=== PATIENT | female | born 1990 | race Caucasian/White ===

== ENCOUNTER 2018-12-25 11:54 | Inpatient (IN) | payer BC, MEDICAID ==
[2019-03-12] MEDS ORDERED: OXYTOCIN 10 UNIT/ML VIAL ONE ×2 (05:45→19:52)
[2019-03-12] MEDS ORDERED: LIDOCAINE 1% INJ-PF (10 MG/ML) 30 ML SDV ONE ×2 (05:45→19:52)
[2019-03-12] MEDS ORDERED: OXYTOCIN/NORMAL SALINE 20 UNIT/1,000 ML RTUINJ ONE ×2 (05:45→19:52)
[2019-03-12] MEDS ORDERED: MISOPROSTOL 0.2 MG TABLET ONE ×2 (05:45→19:52)
[2019-03-12] MEDS ORDERED: RINGERS SOLUTION,LACTATED 1,000 ML IV PRN ×2 (05:51→16:53)
[2019-03-12 06:04] LABS: APPEARANCE,URINE SLIGHTLY-CLOUDY; BILIRUBIN,URINE NEGATIVE (NEGATIVE); COLOR,URINE YELLOW; GLUCOSE, URINE NEGATIVE (NEGATIVE); KETONES,URINE NEGATIVE (NEGATIVE); LEUKOCYTE ESTERASE,URINE TRACE (NEGATIVE); NITRITE,URINE NEGATIVE (NEGATIVE); PROTEIN,URINE NEGATIVE (NEGATIVE); URINE SPECIFIC GRAVITY 1.014; UROBILINOGEN,URINE NEGATIVE mg/dL (<2.0)
[2019-03-12 06:21] LABS: URINE AMPHETAMINES SCREEN NEGATIVE; URINE BARBITURATES SCREEN NEGATIVE; URINE BENZODIAZEPINES SCREEN NEGATIVE; URINE COCAINE SCREEN NEGATIVE; URINE MARIJUANA (THC) SCREEN NEGATIVE; URINE METHADONE SCREEN NEGATIVE; URINE PHENCYCLIDINE SCREEN NEGATIVE
[2019-03-12] MEDS ORDERED: MISOPROSTOL 0.1 MG TABLET PO ONE (06:38)
[2019-03-12] MEDS ORDERED: MISOPROSTOL 0.1 MG TABLET PV ONE (06:39)
[2019-03-12 06:41] LABS: ABSOLUTE BASOPHILS # (AUTO) 0.1 10^3/uL (0.0-0.2); ABSOLUTE EOSINOPHILS # (AUTO) 0.1 10^3/uL (0.0-0.6); ABSOLUTE LYMPHOCYTES (AUTO) 3.3 10^3/uL (0.5-4.7); ABSOLUTE MONOCYTES (AUTO) 0.7 10^3/uL (0.1-1.4); ABSOLUTE NEUT (AUTO) 8.5 10^3/uL (1.7-8.2); BASOPHILS % (AUTO) 0.9 % (0-2); EOSINOPHILS % (AUTO) 0.7 % (0-6); HEMATOCRIT 33.2 % (36.0-47.0); HEMOGLOBIN 10.7 g/dL (12.0-15.5); MEAN CORPUSCULAR HEMOGLOBIN 25.1 pg (27.0-33.4); MEAN CORPUSCULAR HGB CONC 32.1 g/dL (32.0-36.0); MEAN CORPUSCULAR VOLUME 78 fl (80-97); MONOCYTES % (AUTO) 5.5 % (3-13); PLATELET COUNT 200 10^3/uL (150-450); RED BLOOD COUNT 4.25 10^6/uL (3.72-5.28); RED CELL DISTRIBUTION WIDTH 16.6 % (11.5-14.0); SEGMENTED NEUTROPHILS % (AUTO) 66.9 % (42-78); TOTAL CELLS COUNTED % (AUTO) 100 %; WHITE BLOOD COUNT 12.7 10^3/uL (4.0-10.5)
[2019-03-12] MEDS ORDERED: OXYTOCIN/NORMAL SALINE 20 UNIT/1,000 ML RTUINJ IV PRN (08:30)
--- NOTE | 2019-03-12 08:33 | Admission Physical ---
Datetime Report Generated by CPN: 03/12/2019 08:33 CURRENT ADMISSION Chief Complaint: Scheduled Induction of Labor Indication for Induction: Postterm Admit Impression : Term, Intrauterine ; No Active Labor Admit Plan: Admit to Unit; Initiate Labor Induction Protocol ALLERGIES Medication Allergies: Yes Medication Allergies: dexamethasone/facial numbness (03/12/2019) Latex: No Latex Allergies OBSTETRICAL HISTORY EDC: 03/06/2019 00:00 : 1 Para: 0 Term: 0 : 0 SAB: 0 IAB: 0 Ectopic: 0 Livin Cesareans: 0 VBACs: 0 Multiple Births: 0 Gestational Diabetes: No Rh Sensitization: No Incompetent Cervix: No CHRISTIE: No Infertility: No ART Treatment: No Uterine Anomaly: No IUGR: No Hx Previous C/S: No Macrosomia: No Hx Loss/Stillborn: No PIH: No Hx : No Placenta Previa/Abruption: No Depression/PP Depression: Yes PTL/PROM: No Post Hemorrhage: No Obstetrical History Comments: g1-current SEE RECORDS Alcohol: No Marijuana : No Cocaine: No Other Illicit Drugs: No Cigarettes: Never Smoker. [id number] MEDICAL HISTORY Diabetes: No Blood Transfusion: No Pulmonary Disease (Asthma, TB): No Breast Disease: No Hypertension: No Machine Presser Surgery: No Heart Disease: No Hosp/Surgery: No Autoimmune Disorder: No Anesthetic Complications: No Kidney Disease: No Abnormal Pap Smear: No Neuro/Epilepsy: No Psychiatric Disorders: No Other Medical Diseases: Yes Hepatitis/Liver Disease: No Significant Family History: No Varicosities/Phlebitis: No Trauma/Violence : No Thyroid Dysfunction: No Medical History Comments: obesity, PCOS, depression INFECTIOUS HISTORY Gonorrhea: No Genital Herpes: No Chlamydia: No Tuberculosis: No Syphilis: No Hepatitis: No HIV/AIDS Exposure: No Rash or Viral Illness: No HPV: No PHYSICAL EXAM General: Normal HEENT: Normal Neurologic: Normal Thyroid: Deferred Heart: Normal Lungs: Normal Breast: Deferred Back: Normal Abdomen: Normal Genitourinary Exam: Normal Extremities: Normal DTRs: Normal Pelvic Type: Adequate Vital Signs: Reviewed VAGINAL EXAM Dilatation: 1 Effacement: 50 Station: -3 MEMBRANES Membranes: Intact FETUS A EGA: 40.6 Monitoring: External US FHR- Baseline: 130 Variability: Moderate 6-25bpm Accelerations: 15X15 Decelerations: None FHR Category: Category I Presentation: Vertex Admit Comment: 28yo at 40+6ega presents for IOL due to postterm . No e/o GDM. mildly elevated BP - no e/o preE. GBS negative. EFW 9#6oz. cvx was initially billed as 2cm then amadeo yesterday was 1cm. Plan cooks/silveira bulb and pitocin for IOL. Anticipate . PLANS FOR LABOR AND DELIVERY Labor and Delivery: None (Annotations: Data stored by [facility] on behalf of user) Pain Management: Epidural Feeding Preference: Breast Benefit of Breast Feed Discussed: Yes Circumcision: Yes INFORMED CONSENT Informed Consent Obtained: Vaginal Delivery; Induction of Labor; Risks, Benefits and Alternatives Discussed Signature: with User ID: [email or web address]
[2019-03-12] MEDS ORDERED: PHENYLEPHRINE HCL INJ/PF 10 MG/1 ML SDV ONE (13:08)
[2019-03-12] MEDS ORDERED: BUPIVACAINE HCL 0.25 % INJ/PF (2.5 MG/1 ML) 30 ML VIAL ONE (13:09)
[2019-03-12] MEDS ORDERED: FENTANYL/BUPIVACAINE/NS/PF 300 MCG/150 ML RTUINJ EPI ONE (13:09)
[2019-03-12] MEDS ORDERED: EPHEDRINE SULFATE INJ 50 MG/1 ML AMPULE ONE (13:09)
[2019-03-12] MEDS ORDERED: FENTANYL CITRATE INJ/PF 100 MCG/2 ML AMPUL ONE ×2 (13:09→14:35)
[2019-03-12] MEDS ORDERED: LIDOCAINE 2%/EPINEPHRINE INJ 20 ML VIAL ONE (14:34)
[2019-03-12] MEDS ORDERED: SODIUM BICARBONATE 8.4% INJ 50 MEQ/50 ML DISP.SYRIN ONE (14:35)
[2019-03-12] MEDS ORDERED: FENTANYL/BUPIVACAINE/NS/PF 200 MCG/100 ML RTUINJ EPI PRN (16:53)
[2019-03-12] MEDS ORDERED: BENZOIN/ALOE VERA/STORAX/TOLU TINCTURE 60 ML TP PRN (16:53)
[2019-03-12] MEDS ORDERED: BUPIVACAINE HCL 0.25 % INJ/PF (2.5 MG/1 ML) 30 ML VIAL INFIL ONE (16:53)
[2019-03-12] MEDS ORDERED: EPHEDRINE SULFATE INJ 50 MG/1 ML AMPULE IV PRN (16:53)
[2019-03-13] MEDS ORDERED: ACETAMINOPHEN 325 MG TABLET ONE (01:06)
[2019-03-13] MEDS ORDERED: AMPICILLIN SOD/SULBACTAM 3 GM VIAL ONE (01:07)
[2019-03-13] MEDS ORDERED: MEASLES,MUMPS&RUBELLA VACC/PF 0.5 ML VIAL SUBCUT PRN (01:19)
[2019-03-13] MEDS ORDERED: BENZOCAINE/MENTHOL AEROSOL SPRAY 56 ML TOP PRN (01:19)
[2019-03-13] MEDS ORDERED: ACETAMINOPHEN 650 MG SUPP.RECT PR PRN (01:19)
[2019-03-13] MEDS ORDERED: ACETAMINOPHEN WITH CODEINE #3 TABLET PO PRN ×2 (01:19)
[2019-03-13] MEDS ORDERED: OXYTOCIN/NORMAL SALINE 20 UNIT/1,000 ML RTUINJ IV PRN (01:19)
[2019-03-13] MEDS ORDERED: PSEUDOEPHEDRINE HCL 30 MG TABLET PO PRN (01:19)
[2019-03-13] MEDS ORDERED: DIBUCAINE 1% OINTMENT 56 GM TP PRN (01:19)
[2019-03-13] MEDS ORDERED: ZOLPIDEM TARTRATE 5 MG TABLET PO PRN (01:19)
[2019-03-13] MEDS ORDERED: DIPH/PERTUSS(ACELL)/TETANUS VAC/PF 0.5 ML SYR (>=10YO) IM PRN (01:19)
[2019-03-13] MEDS ORDERED: MAGNESIUM HYDROXIDE SUSP 30 ML UDCUP PO PRN (01:19)
[2019-03-13] MEDS ORDERED: PROMETHAZINE HCL 25 MG TABLET PO PRN (01:19)
[2019-03-13] MEDS ORDERED: GLYCERIN/WITCH HAZEL LEAF 1 EACH MED..WIPE TP PRN (01:19)
[2019-03-13] MEDS ORDERED: PROMETHAZINE HCL 25 MG SUPP.RECT PR PRN (01:19)
[2019-03-13] MEDS ORDERED: DIPHENHYDRAMINE HCL 25 MG CAPSULE PO PRN (01:19)
[2019-03-13] MEDS ORDERED: PROMETHAZINE HCL INJ 25 MG/1 ML VIAL IV PRN (01:19)
[2019-03-13] MEDS ORDERED: NA PHOS,M-B/NA PHOS,DI-BA (ADULT) 133 ML ENEMA PR PRN (01:19)
[2019-03-13] MEDS ORDERED: AMPICILLIN SOD/SULBACTAM 3 GM VIAL IV SCH (01:30)
--- NOTE | 2019-03-13 03:03 | Delivery Summary ---
Del Sum A-C Datetime Report Generated by CPN: 03/13/2019 03:03 DELIVERY PERSONNEL DELIVERY PERSONNEL: [id number] Delivery Doctor:: Gunjan Rivera MD Labor and Delivery Nurse:: Yolanda Gage RNinteractive art director Nurse:: Becky Lakhanico, RN MATERNAL INFORMATION Delivery Anesthesia: Epidural Medications After Delivery: Pitocin Bolus-Please Comment Meds After Delivery Comment: Pitocin 20 units/1000 ml NS bolus after placenta Estimated Blood Loss (ml): 250 Delivery QBL: 100 Maternal Complications: None LABOR SUMMARY EDC: 03/06/2019 00:00 No. Babies in Womb: 1 Attempted: No Labor Anesthesia: Epidural LABOR INFORMATION Reason for Induction: Post Dates Onset of Labor: 03/12/2019 09:38 Complete Dilatation: 03/13/2019 23:24 Cervical Ripening Agents: Franz Balloon Oxytocin: Induction Group B Beta Strep: negative Antibiotics # of Doses: 0 Antibiotics Time of Last Dose: n/a Name of Antibiotic Given: n/a Steroids Given: None Reason Steroids Not Administered: Not Applicable MEMBRANES Membranes Rupture Method: Spontaneous Rupture of Membranes: 03/12/2019 17:11 Length of Rupture (hr): 7.65 Amniotic Fluid Color: Clear Amniotic Fluid Amount: Moderate Amniotic Fluid Odor: Normal STAGES OF LABOR Stage 1 hr: 37 Stage 1 min: 46 Stage 2 hr: -22 Stage 2 min: -34 Stage 3 hr: 0 Stage 3 min: 3 Total Time in Labor hr: 15 Total Time in Labor min: 15 VAGINAL DELIVERY Episiotomy: None Laceration #1: Vaginal Laceration Extension #1: First Degree Laceration Repair: Yes Laceration Repair Note: 2-0 Chromic interrupted x 2 figure of 8 CSECTION DELIVERY Primary Indication: N/A Secondary Indication: N/A CSection Incidence: N/A Labor: N/A Elective: N/A CSection Incision: N/A BABY A INFORMATION Infant Delivery Date/Time: 03/13/2019 00:50 Method of Delivery: Vaginal Born in Route : No : N/A Forceps: N/A Vacuum Extraction: N/A Shoulder Dystocia : No PRESENTATION/POSITION BABY A Presentation: Cephalic Cephalic Presentation: Vertex Vertex Position: Occipital Anterior Breech Presentation: N/A PLACENTA INFORMATION BABY A Placenta Delivery Time : 03/13/2019 00:53 Placenta Method of Delivery: Spontaneous Placenta Status: Delivered SCORES BABY A Heart Rate 1 min: >100 bpm Resp Effort 1 min: Absent Reflex Irritability 1 min: No Response Muscle Tone 1 min: Flaccid Color 1 min: Blue/Pale Resuscitation Effort 1 min: Tactile Stimulation; Oxygen SCORE 1 MIN: 2 Heart Rate 5 min: >100 bpm Resp Effort 5 min: Good Cry Reflex Irritability 5 min: Cough or Sneeze or Pulls Away Muscle Tone 5 min: Some Flexion of Extremities Color 5 min: Body [place], Extremities Blue SCORE 5 MIN: 8 INFORMATION BABY A Gestational Age at Delivery: 40.6 Gestational Status: Full Term- 39- 40.6 Weeks Outcome : Liveborn Condition : Stable Sex: Male IDENTIFICATION BABY A Verification Date/Time: 03/13/2019 00:58 ID Band Number: [id number] Mother's Name Verified: Yes Infant RN Verifying : Mary Kay Mendez, RN Additional Verifying Personnel: NAsha Gage, NEHA WEIGHT/LENGTH BABY A Birthweight (gm): 3742 Infant Weight (lb): 8 Weight (oz): 4 Length (in): 21.50 Infant Length (cm): 54.61 CORD INFORMATION BABY A No. Cord Vessels: 3 Nuchal Cord : N/A Cord Blood Taken: Yes-For Storage (Mom's Blood type +) Suction: Mouth; Nose ASSESSMENT BABY A Infant Complications- Other: terminal mec Physical Findings at Delivery: Molding of the Head Physical Findings- Other: see inital nursery assessment Accounting Recruiter/ALS Called : No Care By: Mary Kay Mendez RN/Janusz Kilpatrick RN Transferred To: Remains with Mother SIGNATURES Signature: with User ID: [email or web address]
--- NOTE | 2019-03-13 03:41 | Delivery Summary ---
Del Sum A-C Datetime Report Generated by CPN: 03/13/2019 03:40 DELIVERY PERSONNEL DELIVERY PERSONNEL: [id number] Delivery Doctor:: Gunjan Rivera MD Labor and Delivery Nurse:: Yolanda Gage RNnewspaper reporter Nurse:: Becky Lakhanico, RN MATERNAL INFORMATION Delivery Anesthesia: Epidural Medications After Delivery: Pitocin Bolus-Please Comment Meds After Delivery Comment: Pitocin 20 units/1000 ml NS bolus after placenta Estimated Blood Loss (ml): 250 Delivery QBL: 100 Maternal Complications: None LABOR SUMMARY EDC: 03/06/2019 00:00 No. Babies in Womb: 1 Attempted: No Labor Anesthesia: Epidural LABOR INFORMATION Reason for Induction: Post Dates Onset of Labor: 03/12/2019 09:38 Complete Dilatation: 03/12/2019 23:24 Cervical Ripening Agents: Franz Balloon Oxytocin: Induction Group B Beta Strep: negative Antibiotics # of Doses: 0 Antibiotics Time of Last Dose: n/a Name of Antibiotic Given: n/a Steroids Given: None Reason Steroids Not Administered: Not Applicable MEMBRANES Membranes Rupture Method: Spontaneous Rupture of Membranes: 03/12/2019 17:11 Length of Rupture (hr): 7.65 Amniotic Fluid Color: Clear Amniotic Fluid Amount: Moderate Amniotic Fluid Odor: Normal STAGES OF LABOR Stage 1 hr: 13 Stage 1 min: 46 Stage 2 hr: 1 Stage 2 min: 26 Stage 3 hr: 0 Stage 3 min: 3 Total Time in Labor hr: 15 Total Time in Labor min: 15 VAGINAL DELIVERY Episiotomy: None Laceration #1: Vaginal Laceration Extension #1: First Degree Laceration Repair: Yes Laceration Repair Note: 2-0 Chromic interrupted x 2 figure of 8 CSECTION DELIVERY Primary Indication: N/A Secondary Indication: N/A CSection Incidence: N/A Labor: N/A Elective: N/A CSection Incision: N/A BABY A INFORMATION Infant Delivery Date/Time: 03/13/2019 00:50 Method of Delivery: Vaginal Born in Route : No : N/A Forceps: N/A Vacuum Extraction: N/A Shoulder Dystocia : No PRESENTATION/POSITION BABY A Presentation: Cephalic Cephalic Presentation: Vertex Vertex Position: Occipital Anterior Breech Presentation: N/A PLACENTA INFORMATION BABY A Placenta Delivery Time : 03/13/2019 00:53 Placenta Method of Delivery: Spontaneous Placenta Status: Delivered SCORES BABY A Heart Rate 1 min: >100 bpm Resp Effort 1 min: Absent Reflex Irritability 1 min: No Response Muscle Tone 1 min: Flaccid Color 1 min: Blue/Pale Resuscitation Effort 1 min: Tactile Stimulation; Oxygen SCORE 1 MIN: 2 Heart Rate 5 min: >100 bpm Resp Effort 5 min: Good Cry Reflex Irritability 5 min: Cough or Sneeze or Pulls Away Muscle Tone 5 min: Some Flexion of Extremities Color 5 min: Body [employer], Extremities Blue SCORE 5 MIN: 8 INFORMATION BABY A Gestational Age at Delivery: 40.6 Gestational Status: Full Term- 39- 40.6 Weeks Outcome : Liveborn Condition : Stable Sex: Male IDENTIFICATION BABY A Infant Verification Date/Time: 03/13/2019 00:58 ID Band Number: [id number] Mother's Name Verified: Yes RN Verifying Infant: Mary Kay Mendez, RN Additional Verifying Personnel: NAsha Gage, RN WEIGHT/LENGTH BABY A Infant Birthweight (gm): 3742 Weight (lb): 8 Weight (oz): 4 Length (in): 21.50 Infant Length (cm): 54.61 CORD INFORMATION BABY A No. Cord Vessels: 3 Nuchal Cord : N/A Cord Blood Taken: Yes-For Storage (Mom's Blood type +) Infant Suction: Mouth; Nose ASSESSMENT BABY A Complications- Other: terminal mec Physical Findings at Delivery: Molding of the Head Physical Findings- Other: see inital nursery assessment Traveling Accountant/ALS Called : No Care By: Mary Kay Mendez RN/Janusz Kilpatrick RN Transferred To: [facility] with Mother SIGNATURES Signature: with User ID: [email or web address]
[2019-03-13] MEDS: IBUPROFEN 800 MG TABLET PO SCH ×3 (05:21→23:05)
--- NOTE | 2019-03-13 10:11 | PDOC PROGRESS REPORT ---
Subjective-OB Progress Note for:: 03/13/19 Subjective: Doing well, ringing in ears from ear infection, did not get gtts Rx by Urgent care Physical Exam (OB) Vital Signs: Temp Pulse Resp BP Pulse Ox 97.6 F 77 16 137/70 H 99 03/13/19 08:08 03/13/19 08:08 03/13/19 08:08 03/13/19 08:08 03/13/19 03:35 Intake & Output 03/12/19 03/13/19 03/14/19 06:59 06:59 06:59 Intake Total 600 240 Balance 600 240 Weight 134.7 kg - PIH/Pre-Eclampsia Clonus: Negative Headache: Absent Epigastric Pain: No Visual Changes: No - Lochia Lochia Amount: Small 10-25 ml Lochia Color: Rubra/Red - Abdomen Description: Soft, Round Hernia Present: No Fundal Description: Firm, Midline Fundal Height: u/u - u/2 Objective-Diagnostic Laboratory: 03/12/19 06:09 Assessment and Plan(PN) - Assessment and Plan (1) Vaginal delivery Is this a current diagnosis for this admission?: Yes - Time Spent with Patient Time with patient: Less than 15 minutes Medications reviewed and adjusted accordingly: Yes - Disposition Anticipated Discharge: Home Within: within 24 hours
[2019-03-13] MEDS: FERROUS SULFATE 325 MG TABLET PO SCH ×2 (11:16→17:34)
[2019-03-13] MEDS: PRENATAL VITAMIN W DHA CAPSULE PO SCH (11:16)
[2019-03-13] MEDS: DOCUSATE SODIUM 100 MG CAPSULE PO SCH ×2 (11:16→17:34)
[2019-03-13] MEDS: SENNOSIDES/DOCUSATE 8.6-50 MG 1 EACH TABLET PO SCH (11:16)
[2019-03-13] MEDS: FAMOTIDINE 20 MG TABLET PO SCH ×2 (11:17→23:05)
[2019-03-13] MEDS: AMPICILLIN SODIUM/SULBACTAM NA 3 GM in NORMAL SALINE 100 ML IV SCH ×2 (11:17→17:34)
[2019-03-13] MEDS: CETIRIZINE 10 MG TABLET PO SCH (11:23)
[2019-03-14] MEDS: IBUPROFEN 800 MG TABLET PO SCH ×3 (05:27→21:15)
[2019-03-14 06:57] LABS: MEAN CORPUSCULAR HEMOGLOBIN 25.1 pg (27.0-33.4); MEAN CORPUSCULAR VOLUME 78 fl (80-97); PLATELET COUNT 227 10^3/uL (150-450); RED BLOOD COUNT 3.44 10^6/uL (3.72-5.28); RED CELL DISTRIBUTION WIDTH 17.1 % (11.5-14.0)
[2019-03-14 07:10] LABS: HEMOGLOBIN 8.6 g/dL (12.0-15.5)
--- NOTE | 2019-03-14 09:17 | PDOC PROGRESS REPORT ---
Subjective-OB Progress Note for:: 03/14/19 Subjective: Doing well, no c/o Physical Exam (OB) Vital Signs: Temp Pulse Resp BP Pulse Ox 97.8 F 87 12 133/70 H 97 03/14/19 07:19 03/14/19 07:19 03/14/19 07:19 03/14/19 07:19 03/14/19 07:19 Intake & Output 03/13/19 03/14/19 03/15/19 06:59 06:59 06:59 Intake Total 600 340 Balance 600 340 - PIH/Pre-Eclampsia Clonus: Negative Headache: Absent Epigastric Pain: No Visual Changes: No - Lochia Lochia Amount: Small 10-25 ml Lochia Color: Rubra/Red - Abdomen Description: Soft, Round Hernia Present: No Fundal Description: Firm, Midline Fundal Height: u/u - u/2 Objective-Diagnostic Laboratory: 03/14/19 06:39 03/14/19 06:39 WBC 13.0 H RBC 3.44 L Hgb 8.6 L D Hct 27.0 L MCV 78 L MCH 25.1 L MCHC 32.0 RDW 17.1 H Plt Count 227 Assessment and Plan(PN) - Assessment and Plan (1) Vaginal delivery Is this a current diagnosis for this admission?: Yes - Time Spent with Patient Time with patient: Less than 15 minutes Medications reviewed and adjusted accordingly: Yes - Disposition Anticipated Discharge: Home Within: within 24 hours
--- NOTE | 2019-03-14 09:43 | PDOC DISCHARGE SUMMARY ---
Final Diagnosis Discharge Date: 03/14/19 - Final Diagnosis (1) Vaginal delivery Is this a current diagnosis for this admission?: Yes Discharge Data - Discharge Medication Home Medications: Vitamin [-U Multiple Vitamin Capsule] 1 tab PO DAILY 03/12/19 Ferrous Sulfate [Feosol 325 mg Tablet] 325 mg PO BID tablet 03/14/19 Gestational Age: 40.6 Reason(s) for Admission: Induction of Labor Procedures: NST, Ultrasound Intrapartum Procedure(s): Spontaneous Vaginal Delivery Complication(s): Laceration-Vaginal Laceration-Degree: 1st - [place] Data Baby 1 Male Home with Mother: Yes Complications: No - Diagnosis Test Laboratory: Temp Pulse Resp BP Pulse Ox 97.8 F 87 12 133/70 H 97 03/14/19 07:19 03/14/19 07:19 03/14/19 07:19 03/14/19 07:19 03/14/19 07:19 03/12/19 03/12/19 03/14/19 05:23 06:09 06:39 RBC 4.25 3.44 L Hgb 10.7 L 8.6 L D Hct 33.2 L 27.0 L Urine Opiates Screen NEGATIVE - Discharge information/Instructions Discharge Activity: Activity As Tolerated, No Lifting Over 10 Pounds, No Lifting/Push/Pulling, Pelvic Rest Discharge Diet: As Tolerated, Regular Disposition: HOME, SELF-CARE Follow up with: [facility] in: 4, Weeks
[2019-03-14] MEDS ORDERED: CETIRIZINE 10 MG TABLET PO SCH (10:00)
[2019-03-14] MEDS: CETIRIZINE 10 MG TABLET PO SCH (10:04)
[2019-03-14] MEDS: DOCUSATE SODIUM 100 MG CAPSULE PO SCH ×2 (10:04→18:28)
[2019-03-14] MEDS: PRENATAL VITAMIN W DHA CAPSULE PO SCH (10:05)
[2019-03-14] MEDS: FERROUS SULFATE 325 MG TABLET PO SCH ×2 (10:05→18:28)
[2019-03-14] MEDS: SENNOSIDES/DOCUSATE 8.6-50 MG 1 EACH TABLET PO SCH (10:05)
[2019-03-14] MEDS: FAMOTIDINE 20 MG TABLET PO SCH ×2 (10:05→21:15)
[2019-03-15] MEDS: IBUPROFEN 800 MG TABLET PO SCH (05:31)
[2019-03-15] MEDS: FAMOTIDINE 20 MG TABLET PO SCH (10:28)
[2019-03-15] MEDS: CETIRIZINE 10 MG TABLET PO SCH (10:28)
[2019-03-15] MEDS: PRENATAL VITAMIN W DHA CAPSULE PO SCH (10:28)
[2019-03-15] MEDS: SENNOSIDES/DOCUSATE 8.6-50 MG 1 EACH TABLET PO SCH (10:28)
[2019-03-15] MEDS: FERROUS SULFATE 325 MG TABLET PO SCH (10:28)
[2019-03-15] MEDS: DOCUSATE SODIUM 100 MG CAPSULE PO SCH (10:28)
[2019-03-15 12:26] VITALS: BP 136/75
== END 2019-03-15 14:08 | disposition home or self-care (01) | DRG 807 ==
LOC: UNDOADMIN 11:54 → EH 11:54 → LR 03-12 05:02 → 2S 03-13 03:15
PROVIDERS: ADMIT Student in an Organized Health Care Education/Training Program; ATTEND Obstetrics & Gynecology
PROC: 10E0XZZ Delivery of Products of Conception, External Approach (ICD-10-PCS; principal; 2019-03-13)
PROC: 0HQ9XZZ Repair Perineum Skin, External Approach (ICD-10-PCS; 2019-03-13)
DX: O48.0 Post-term pregnancy (principal); Z37.0 Single live birth; O70.0 First degree perineal laceration during delivery; O99.214 Obesity complicating childbirth; E66.9 Obesity, unspecified; O99.344 Other mental disorders complicating childbirth; F32.9 Major depressive disorder, single episode, unspecified; Z3A.40 40 weeks gestation of pregnancy; O77.0 Labor and delivery complicated by meconium in amniotic fluid; O99.02 Anemia complicating childbirth; D50.9 Iron deficiency anemia, unspecified; O99.89 Other specified diseases and conditions complicating pregnancy, childbirth and the puerperium; H66.90 Otitis media, unspecified, unspecified ear; Z88.8 Allergy status to other drugs, medicaments and biological substances
CPT/HCPCS: 36415; 80307; 81005; 85025; 85027; 86592; 86850; 86900; 86901; 94760; J0295; J2370; J2590; J3010; J3490; J7050

== ENCOUNTER 2019-03-16 03:10 | Emergency (ER) | payer BC, MEDICAID ==
[2019-03-16 04:14] LABS: ABSOLUTE BASOPHILS # (AUTO) 0.1 10^3/uL (0.0-0.2); ABSOLUTE EOSINOPHILS # (AUTO) 0.2 10^3/uL (0.0-0.6); ABSOLUTE LYMPHOCYTES (AUTO) 2.9 10^3/uL (0.5-4.7); ABSOLUTE MONOCYTES (AUTO) 0.6 10^3/uL (0.1-1.4); ABSOLUTE NEUT (AUTO) 6.1 10^3/uL (1.7-8.2); BASOPHILS % (AUTO) 0.9 % (0-2); EOSINOPHILS % (AUTO) 2.4 % (0-6); HEMATOCRIT 29.3 % (36.0-47.0); HEMOGLOBIN 9.3 g/dL (12.0-15.5); LYMPHOCYTES % (AUTO) 29.5 % (13-45); MEAN CORPUSCULAR HEMOGLOBIN 25.2 pg (27.0-33.4); MEAN CORPUSCULAR HGB CONC 31.9 g/dL (32.0-36.0); MEAN CORPUSCULAR VOLUME 79 fl (80-97); MONOCYTES % (AUTO) 5.6 % (3-13); PLATELET COUNT 251 10^3/uL (150-450); RED CELL DISTRIBUTION WIDTH 17.3 % (11.5-14.0); SEGMENTED NEUTROPHILS % (AUTO) 61.6 % (42-78); TOTAL CELLS COUNTED % (AUTO) 100 %; WHITE BLOOD COUNT 9.9 10^3/uL (4.0-10.5)
[2019-03-16 04:31] LABS: ALKALINE PHOSPHATASE 82 U/L (38-126); ANION GAP 6 (5-19); ASPARTATE AMINO TRANSFERASE 29 U/L (14-36); BILIRUBIN,DIRECT 0.1 mg/dL (0.0-0.4); BILIRUBIN,TOTAL 0.2 mg/dL (0.2-1.3); BLOOD UREA NITROGEN 12 mg/dL (7-20); CALCIUM 9.4 mg/dL (8.4-10.2); CARBON DIOXIDE 27 mmol/L (22-30); CHLORIDE 105 mmol/L (98-107); GLUCOSE 76 mg/dL (75-110); POTASSIUM 4.3 mmol/L (3.6-5.0); TOTAL PROTEIN 5.3 g/dL (6.3-8.2)
[2019-03-16] MEDS ORDERED: FUROSEMIDE INJ/PF 40 MG/4 ML SDV IV ONE (04:38)
[2019-03-16 04:43] LABS: NT PRO BNP 164 pg/mL (<125)
[2019-03-16 04:44] LABS: TROPONIN I < 0.012 ng/mL
--- NOTE | 2019-03-16 05:10 | RADIOLOGY REPORT (SQ) ---
Chest 2 view on 03/16/2019 at 5:05 AM CLINICAL INDICATION: Chest pain, shortness of breath COMPARISON: None FINDINGS: The lungs are clear. There is mild elevation of the right hemidiaphragm. Cardiac, hilar and mediastinal contours are within normal limits. Pulmonary vascularity is within normal limits. No bony abnormality is noted. IMPRESSION: No active disease.
--- NOTE | 2019-03-16 05:24 | ER Document Report ---
ED Respiratory Problem - General Chief Complaint: Shortness Of Breath Stated Complaint: CHEST DISCOMFORT/LEG SWELLING Time Seen by Provider: 03/16/19 03:46 Mode of Arrival: Ambulatory Information source: Patient Notes: HISTORY OF PRESENT ILLNESS: Patient is a 28-year-old female with a past medical history of recently giving to her first child 3 days ago who presents with acute onset shortness of breath and midsternal chest pain that began prior to arrival. Patient denies known history of similar symptoms in the past, no recent fevers or chills, no cough or congestion. Of note, the patient also reports increased swelling in her legs. Location: Chest Onset: Sudden Alleviation: None Provocation: None Quality: "My lungs feel tight" Radiation: None Severity: Mild to moderate Timing: Constant History of CAD: None Associated symptoms: Denies fevers or chills, reports increase in swelling of her legs REVIEW OF SYSTEMS: CONSTITUTIONAL : Denies fever or chills, no sweats. Denies recent illness. EENT: Denies eye, ear, throat, or mouth pain or symptoms. Denies nasal or si nus congestion. CARDIOVASCULAR: Positive for chest pain. Denies swelling of the legs. RESPIRATORY: Denies cough, cold, or chest congestion. Positive for shortness of breath or difficulty breathing. Denies wheezing. GASTROINTESTINAL: Denies abdominal pain. Denies nausea, vomiting, or diarrhea. Denies constipation. GENITOURINARY: Denies difficulty urinating, painful urination, burning, freque ncy, or blood in urine. FEMALE GENITOURINARY: Positive for recent delivery. MUSCULOSKELETAL: Denies neck or back pain or joint pain or swelling. SKIN: Denies rash or skin lesions. HEMATOLOGIC : Denies easy bruising or bleeding. LYMPHATIC: Denies swollen, enlarged glands. NEUROLOGICAL: Denies altered mental status or loss of consciousness. Denies headache. Denies weakness or paralysis or loss of use of either side. Denies problems with gait or speech. Denies sensory or motor loss. PSYCHIATRIC: Denies anxiety or stress or depression. All other systems reviewed and negative. PHYSICAL EXAMINATION: GENERAL: Well-appearing, well-nourished and in no acute distress. HEAD: Atraumatic, normocephalic. No scalp deformity, depression, or crepitance. EYES: Pupils are 3 mm and equal/round/reactive to light, extraocular movements intact, sclera anicteric, conjunctiva are normal. ENT: Nares patent bilaterally, oropharynx. Moist mucous membranes. No tonsil hypertrophy. NECK: Normal range of motion, supple without lymphadenopathy. LUNGS: Breath sounds present, equal, and clear to auscultation bilaterally. No wheezes, rales, or rhonchi. HEART: Regular rate and rhythm without murmurs, rubs, or gallops. 2+ peripheral pulses. Normal capillary refill. ABDOMEN: Soft, nontender, nondistended. Normoactive bowel sounds. No guarding, no rebound. No masses appreciated. BACK: Normal contour, no midline tenderness. Rectal exam deferred. GENITAL/PELVIC: Deferred. EXTREMITIES: Normal range of motion, no pitting or edema. No cyanosis. NEUROLOGICAL: No focal neurological deficits. Moves all extremities spontaneously and on command. PSYCH: Normal mood, normal affect. No suicidal thoughts/ideations. No homicidal thoughts/ideations. No hallucinations. SKIN: Warm, dry, normal turgor, no rashes or lesions noted. ASSESSMENT AND PLAN: This patient is a 28-year-old female who presents with chest pain and shortness of breath. Her exam is completely normal, question uncontrolled hypertension versus pulmonary edema versus pedal edema versus preeclampsia. Amniotic fluid embolism is much less likely given vaginal delivery and no symptoms immediately after delivery. Pulmonary embolism was also considered, however the patient has symmetric swelling of the extremities, has no tachycardia, no hypoxia, and has no distress. 1. Will obtain labs, urine, BNP, cardiac enzymes, and chest x-ray. 2. Will give IV Lasix and reassess. TRAVEL OUTSIDE OF THE [place] IN LAST 30 DAYS: No - HPI Patient complains to provider of: Chest pain, Hurts to breath, Short of breath Onset: Just prior to arrival Duration: Continuous Quality of pain: Achy Severity: Mild Pain Level: 1 Context: Other - Recent delivery of her first child Short of Breath: Mild Chest pain/discomfort: Center Sputum amount: None Similar symptoms previously: No Recently seen / treated by doctor: No - Related Data Allergies/Adverse Reactions: dexamethasone [From DexPak] Allergy (Unknown, Verified 03/12/19 05:57) facial numbness Past Medical History - General Information source: Patient - Social History Smoking Status: Unknown if Ever Smoked Chew tobacco use (# tins/day): No Frequency of alcohol use: None Drug Abuse: None Lives with: Family Family History: Reviewed & Not Pertinent Patient has suicidal ideation: No Patient has homicidal ideation: No - Past Medical History Cardiac Medical History: Reports: None Pulmonary Medical History: Reports: None EENT Medical History: Reports: None Neurological Medical History: Reports: None Endocrine Medical History: Reports: None Renal/ Medical History: Reports: Other - History of recent spontaneous vaginal delivery Malignancy Medical History: Reports: None GI Medical History: Reports: None Musculoskeletal Medical History: Reports None Skin Medical History: Reports None Psychiatric Medical History: Reports: None Traumatic Medical History: Reports: None Infectious Medical History: Reports: None Surgical Hx: Negative Past Surgical History: Reports: Hx Tonsillectomy - Immunizations Immunizations up to date: Yes Hx Diphtheria, Pertussis, Tetanus Vaccination: Yes Review of Systems - Review of Systems Constitutional: No symptoms reported EENT: No symptoms reported Cardiovascular: See HPI, Chest pain Respiratory: See HPI, Short of breath Gastrointestinal: No symptoms reported Genitourinary: No symptoms reported Female Genitourinary: No symptoms reported Musculoskeletal: No symptoms reported Skin: No symptoms reported Hematologic/Lymphatic: No symptoms reported Neurological/Psychological: No symptoms reported -: Yes All other systems reviewed and negative Physical Exam - Vital signs Vitals: Temp Pulse Resp BP Pulse Ox 97.8 F 80 18 127/84 H 98 03/16/19 03:20 03/16/19 03:20 03/16/19 03:20 03/16/19 03:20 03/16/19 03:20 Interpretation: Normal - General General appearance: Appears well, Alert - HEENT Head: Normocephalic, Atraumatic Eyes: Normal Pupils: PERRL - Respiratory Respiratory status: No respiratory distress Chest status: Nontender Breath sounds: Normal Chest palpation: Normal - Cardiovascular Rhythm: Regular Heart sounds: Normal auscultation Murmur: No - Abdominal Inspection: Normal Distension: No distension Bowel sounds: Normal Tenderness: Nontender Organomegaly: No organomegaly - Back Back: Normal, Nontender - Extremities General upper extremity: Normal inspection, Nontender, Normal color, Normal ROM, Normal temperature General lower extremity: Normal inspection, Nontender, Normal color, Normal ROM, Normal temperature, Normal weight bearing. No: [place]'s sign - Neurological Neuro grossly intact: Yes Cognition: Normal Orientation: AAOx4 Joanie Coma Scale Eye Opening: Spontaneous Joanie Coma Scale Verbal: Oriented [place] Coma Scale Motor: Obeys Commands [place] Coma Scale Total: 15 Speech: Normal Motor strength normal: LUE, RUE, LLE, RLE Sensory: Normal - Psychological Associated symptoms: Normal affect, Normal mood - Skin Skin Temperature: Warm Skin Moisture: Dry Skin Color: Normal Course - Re-evaluation Re-evalutation: 03/16/19 05:52 Blood work is unremarkable other than mildly elevated BNP. Cardiac enzymes are negative. Chest x-ray is also negative. Will discharge the patient home with strict return precautions and follow-up with primary physician. All results were explained to and discussed with the patient, and all questions addressed and answered for the patient. The patient and her mother voice both understanding and agreeing with the plan. - Vital Signs Vital signs: Temp Pulse Resp BP Pulse Ox 97.8 F 80 17 146/90 H 99 03/16/19 03:20 03/16/19 03:20 03/16/19 04:01 03/16/19 04:39 03/16/19 04:01 - Laboratory Result Diagrams: 03/16/19 04:00 03/16/19 04:00 Laboratory results interpreted by me: 03/16/19 03/16/19 03/16/19 04:00 04:00 04:00 RBC 3.70 L Hgb 9.3 L Hct 29.3 L MCV 79 L MCH 25.2 L MCHC 31.9 L RDW 17.3 H NT-Pro-B Natriuret Pep 164 H Total Protein 5.3 L Albumin 3.0 L Urine Blood Ur Leukocyte Esterase 03/16/19 05:35 RBC Hgb Hct MCV MCH MCHC RDW NT-Pro-B Natriuret Pep Total Protein Albumin Urine Blood LARGE H Ur Leukocyte Esterase TRACE H - Diagnostic Test Radiology reviewed: Image reviewed, Reports reviewed - EKG Interpretation by Me EKG shows normal: Sinus rhythm Rate: Normal Rhythm: NSR [place]/QRS: No: Right axis deviation, Left axis deviation, RBBB, LBBB, IVCD, LAHB/LAFB, LPHB/LPFB, Bifasicular block Voltage: No: Increased voltage, Consistant with LVH, Decreased voltage, Throughout, Limb leads P Waves: No: ANILA, LAE, Absent, AV Dissociation, Other Heart block present: No: 1st Degree, Mobitz 1, Mobitz 2, CHB (3rd degree block) When compared to previous EKG there are: Previous EKG unavailable Discharge - Discharge Clinical Impression: Peripheral edema, Uncontrolled hypertension Condition: Good Disposition: HOME, SELF-CARE Instructions: Edema, Peripheral ([facility]), Post- Edema ([facility]) Additional Instructions: You have been evaluated in the Emergency Department for increased blood pressure, swelling in your legs, and trouble breathing. While here, you had blood work that was normal. You were given IV fluid medications and it is now safe to be discharged home. Please follow-up with your primary physician as instructed in 1 week to be rechecked. Return to the Emergency Department if you experience worsening breathing, increasing swelling unrelieved with medication, chest pain, or any other concerning symptoms. Prescriptions: Furosemide [Lasix 20 mg Tablet] 20 mg PO QAM #30 tablet Print Language: Upper Sorbian
[2019-03-16 05:47] LABS: APPEARANCE,URINE CLEAR; BILIRUBIN,URINE NEGATIVE (NEGATIVE); COLOR,URINE YELLOW; GLUCOSE, URINE NEGATIVE (NEGATIVE); KETONES,URINE NEGATIVE (NEGATIVE); LEUKOCYTE ESTERASE,URINE TRACE (NEGATIVE); NITRITE,URINE NEGATIVE (NEGATIVE); PROTEIN,URINE NEGATIVE (NEGATIVE); URINE SPECIFIC GRAVITY 1.014; UROBILINOGEN,URINE NEGATIVE mg/dL (<2.0)
[2019-03-16 06:01] LABS: URINE AMPHETAMINES SCREEN NEGATIVE; URINE BARBITURATES SCREEN NEGATIVE; URINE BENZODIAZEPINES SCREEN NEGATIVE; URINE COCAINE SCREEN NEGATIVE; URINE MARIJUANA (THC) SCREEN NEGATIVE; URINE METHADONE SCREEN NEGATIVE; URINE PHENCYCLIDINE SCREEN NEGATIVE
[2019-03-16 06:13] VITALS: BP 143/88
--- NOTE | 2019-03-17 14:21 | EKG REPORT ---
SEVERITY:- NORMAL ECG - SINUS RHYTHM : Confirmed by: Pancho Ta 17-Mar-2019 14:20:03
== END 2019-03-16 06:13 | disposition home or self-care (01) ==
LOC: ER 03:10
DX: O14.95 Unspecified pre-eclampsia, complicating the puerperium (principal); O90.89 Other complications of the puerperium, not elsewhere classified; R06.02 Shortness of breath; R07.1 Chest pain on breathing; Z88.8 Allergy status to other drugs, medicaments and biological substances
CPT/HCPCS: 93005; 99284; 96374; 36415; 85025; 80053; 81001; 84484; 80307; 83880; 71046; 93010; J1940

== ENCOUNTER 2019-03-19 17:50 | Emergency (ER) | payer BC, MEDICAID ==
--- NOTE | 2019-03-19 19:45 | ER Document Report ---
ED Medical Screen (RME) - General Chief Complaint: Leg Pain Stated Complaint: POSSIBLE BLOOD CLOT Time Seen by Provider: 03/19/19 19:40 Mode of Arrival: Ambulatory Information source: Patient Notes: 28-year-old female presented to ED for a red inflamed vein to the upper right leg. It is pink and swollen hot to the touch. She does have large varicose veins. She is 1 week post delivery for her son. Only medical history is tonsils and adenoids. She does live with her family. She does not smoke drink or drugs. She states she had talked about vein stripping but had to wait to after the baby was born and she is not sure how long she needs to wait now. Patient is alert oriented respirations regular and unlabored speaking in full sentences walks with even steady gait. I have greeted and performed a rapid initial assessment of this patient. A comprehensive ED assessment and evaluation of the patient, analysis of test results and completion of medical decision making process will be conducted by an additional ED providers. TRAVEL OUTSIDE OF THE [place] IN LAST 30 DAYS: No - Related Data Allergies/Adverse Reactions: dexamethasone [From DexPak] Allergy (Unknown, Verified 03/12/19 05:57) facial numbness Past Medical History Past Surgical History: Reports: Hx Tonsillectomy - Immunizations Immunizations up to date: Yes Hx Diphtheria, Pertussis, Tetanus Vaccination: Yes Physical Exam - Vital signs Vitals: Temp Pulse Resp BP Pulse Ox 98.6 F 71 18 147/78 H 97 03/19/19 17:59 03/19/19 17:59 03/19/19 17:59 03/19/19 17:59 03/19/19 17:59 Course - Vital Signs Vital signs: Temp Pulse Resp BP Pulse Ox 98.6 F 71 18 147/78 H 97 03/19/19 17:59 03/19/19 17:59 03/19/19 17:59 03/19/19 17:59 03/19/19 17:59
[2019-03-19 20:03] LABS: ABSOLUTE BASOPHILS # (AUTO) 0.1 10^3/uL (0.0-0.2); ABSOLUTE EOSINOPHILS # (AUTO) 0.2 10^3/uL (0.0-0.6); ABSOLUTE LYMPHOCYTES (AUTO) 2.4 10^3/uL (0.5-4.7); ABSOLUTE MONOCYTES (AUTO) 0.5 10^3/uL (0.1-1.4); BASOPHILS % (AUTO) 0.7 % (0-2); EOSINOPHILS % (AUTO) 1.9 % (0-6); HEMATOCRIT 37.2 % (36.0-47.0); HEMOGLOBIN 11.9 g/dL (12.0-15.5); LYMPHOCYTES % (AUTO) 23.9 % (13-45); MEAN CORPUSCULAR HEMOGLOBIN 25.5 pg (27.0-33.4); MEAN CORPUSCULAR HGB CONC 32.1 g/dL (32.0-36.0); MEAN CORPUSCULAR VOLUME 79 fl (80-97); MONOCYTES % (AUTO) 4.7 % (3-13); PLATELET COUNT 347 10^3/uL (150-450); RED BLOOD COUNT 4.69 10^6/uL (3.72-5.28); RED CELL DISTRIBUTION WIDTH 17.5 % (11.5-14.0); SEGMENTED NEUTROPHILS % (AUTO) 68.8 % (42-78); TOTAL CELLS COUNTED % (AUTO) 100 %; WHITE BLOOD COUNT 10.1 10^3/uL (4.0-10.5)
--- NOTE | 2019-03-19 21:43 | RADIOLOGY REPORT (SQ) ---
EXAM DESCRIPTION: US EXTREMITY VEINS UNILATERAL COMPLETED DATE/TME: 03/19/2019 19:41 CLINICAL HISTORY: 28 years, Female, infected varicose vein COMPARISON: None. TECHNIQUE: Transverse and longitudinal sonographic images of the right lower extremity deep venous system LIMITATIONS: None. FINDINGS: Normal compression and augmentation throughout. Doppler images are unremarkable. No visible areas of deep venous thrombus. Equivocal thrombosis within the varicose veins within the thigh suggesting superficial thrombophlebitis. IMPRESSION: Negative for DVT. Probable mild superficial thrombophlebitis copyright 2010 [employer]- All Rights Reserved
[2019-03-19] MEDS ORDERED: NAPROXEN 250 MG TABLET PO ONE (22:46)
[2019-03-19] MEDS ORDERED: CEPHALEXIN 500 MG CAPSULE PO ONE (22:46)
--- NOTE | 2019-03-19 22:46 | ER Document Report ---
ED Extremity Problem, Lower - General Chief Complaint: Leg Pain Stated Complaint: POSSIBLE BLOOD CLOT Time Seen by Provider: 03/19/19 19:40 Mode of Arrival: Ambulatory Notes: Patient is a 28-year-old female that comes emergency department for chief complaint of a red, inflamed, painful area to the right upper leg. This appears to be over a vein per patient. She states that she is 1 week status post spontaneous vaginal delivery. She does report a history of known varicose veins, obesity, denies medical history otherwise. She denies smoking. She denies history of blood clots. She denies any other complaints. TRAVEL OUTSIDE OF THE [place] IN LAST 30 DAYS: No - Related Data Allergies/Adverse Reactions: dexamethasone [From DexPak] Allergy (Unknown, Verified 03/12/19 05:57) facial numbness Past Medical History - General Information source: Patient - Social History Smoking Status: Never Smoker Frequency of alcohol use: None Drug Abuse: None Lives with: Family Family History: Reviewed & Not Pertinent Patient has suicidal ideation: No Patient has homicidal ideation: No Past Surgical History: Reports: Hx Tonsillectomy - Immunizations Immunizations up to date: Yes Hx Diphtheria, Pertussis, Tetanus Vaccination: Yes Review of Systems - Review of Systems Constitutional: No symptoms reported EENT: No symptoms reported Cardiovascular: No symptoms reported Respiratory: No symptoms reported Gastrointestinal: No symptoms reported Genitourinary: No symptoms reported Female Genitourinary: No symptoms reported Musculoskeletal: See HPI Skin: See HPI Hematologic/Lymphatic: No symptoms reported Neurological/Psychological: No symptoms reported Physical Exam - Vital signs Vitals: Temp Pulse Resp BP Pulse Ox 98.6 F 71 18 147/78 H 97 03/19/19 17:57 03/19/19 17:57 03/19/19 17:57 03/19/19 17:57 03/19/19 17:57 - Notes Notes: GENERAL: Alert, interacts well. No acute distress. HEAD: Normocephalic, atraumatic. EYES: Pupils equal, round, and reactive to light. Extraocular movements intact. ENT: Oral mucosa moist, tongue midline. Oropharynx unremarkable. Airway patent. LUNGS: Clear to auscultation bilaterally, no wheezes, rales, or rhonchi. No respiratory distress. HEART: Regular rate and rhythm. No murmur ABDOMEN: Soft, non-tender. Non-distended. EXTREMITIES: Right mid thigh with an area of tenderness, a raised area suggestive of thrombophlebitis, there is some warmth and erythema to the area as well. There is no induration or fluctuance. The hip, knee, ankle exams are normal, normal distal neurovascular exam, normal extremities otherwise. BACK: no cervical, thoracic, lumbar midline tenderness. No saddle anesthesia, normal distal neurovascular exam. Moves all extremities in full range of motion. NEUROLOGICAL: Alert and oriented x3. Normal speech. Cranial nerves II through XII grossly intact. PSYCH: Normal affect, normal mood. SKIN: Warm, dry, normal turgor. No rashes or lesions noted. Course - Re-evaluation Re-evalutation: On reevaluation patient has an erythematous, somewhat tender area over the right mid thigh which is consistent with a superficial thrombophlebitis. Ultrasound confirms this, shows no DVT. I did review CBC from triage and this is unremar kable. No other complaints. I discussed options with patient. I do not feel patient is high risk for DVT, she will not be anticoagulated, this was however discussed in detail. Discussed different options. Patient will be placed on anti-inflammatory, patient requests antibiotic for the area for possible infection/cellulitis, the area is not overtly purulent, she has no fever, she is not a diabetic, however based on the pain and redness she will be placed on prophylactic Keflex. I did discuss follow-up and return precautions in detail. Patient states appreciation and agreement. - Vital Signs Vital signs: Temp Pulse Resp BP Pulse Ox 98.1 F 76 20 140/76 H 99 03/19/19 22:53 03/19/19 22:53 03/19/19 22:53 03/19/19 22:53 03/19/19 22:53 - Laboratory Result Diagrams: 03/19/19 19:50 Laboratory results interpreted by me: 03/19/19 19:50 Hgb 11.9 L MCV 79 L MCH 25.5 L RDW 17.5 H Discharge - Discharge Clinical Impression: Right thigh pain Superficial thrombophlebitis Qualifiers: Superficial thrombophlebitis-Involved body area: lower extremity Laterality: right Qualified Code(s): I80.01 - Phlebitis and thrombophlebitis of superficial vessels of right lower extremity Condition: Stable Disposition: HOME, SELF-CARE Additional Instructions: Your ultrasound does not show any deep clots, this does show some superficial thrombophlebitis as we discussed. I recommend elevation, warm compresses to the area several times a day, the prescribed anti-inflammatory, and because of the surrounding redness and pain we have placed you on the Keflex antibiotic. Take medications as prescribed, this should resolve with time. Follow-up with primary care for additional management. Come back if you are worse including spreading redness, severe pain, fever/chills, swelling of the leg, shortness of breath, chest pain, or any other concerning symptoms. Prescriptions: Cephalexin Monohydrate [Keflex 500 mg Capsule] 500 mg PO QID #28 capsule Naproxen 500 mg PO BID PRN #20 tablet PRN Reason:
[2019-03-19 22:58] VITALS: BP 147/78
== END 2019-03-19 22:58 | disposition home or self-care (01) ==
LOC: ER 17:50
DX: O87.0 Superficial thrombophlebitis in the puerperium (principal); O90.89 Other complications of the puerperium, not elsewhere classified; M79.651 Pain in right thigh
CPT/HCPCS: 36415; 85025; 93971; 99284

== ENCOUNTER → 2019-07-08 | Outpatient (CLI) | payer BC, MEDICAID ==
--- NOTE | 2019-07-08 10:03 | WOMENS IMAGING REPORT ---
EXAM DESCRIPTION: U/S ABDOMEN LIMITED COMPLETED DATE/TIME: 07/08/2019 7:21 am REASON FOR STUDY: R10.11 RIGHT UPPER QUADRANT PAIN R10.11 RIGHT UPPER QUADRANT PAIN COMPARISON: Abdominal ultrasound 11/23/2010 TECHNIQUE: Dynamic and static grayscale images acquired of the abdomen and recorded on PACS. Additio nal selected color Doppler and spectral images recorded. LIMITATIONS: Midline bowel gas, body habitus FINDINGS: PANCREAS: Not visualized LIVER: Diffuse increased echogenicity from fatty infiltration. No focal masses. No biliary ductal d ilatation. LIVER VASCULATURE: Normal directional flow of the main portal vein and hepatic veins. GALLBLADDER: Multiple tiny stones layer dependently in the gallbladder. No gallbladder wall thickeni ng or pericholecystic fluid. ULTRASOUND-DETECTED SUGGS'S SIGN: Negative. INTRAHEPATIC DUCTS AND COMMON DUCT: CBD and intrahepatic ducts normal caliber. No filling defects. D istal most common duct not well seen. INFERIOR VENA CAVA: Not well seen AORTA: Not well seen RIGHT KIDNEY: Normal size. Normal echogenicity. No solid or suspicious masses. No hydronephrosis. No calcifications. PERITONEAL AND RIGHT PLEURAL SPACE: No ascites or effusions. OTHER: No other significant findings. IMPRESSION: Gallstones. No gallbladder wall thickening or pericholecystic fluid. Fatty liver TECHNICAL DOCUMENTATION: JOB ID: [id number] 60mo- All Rights Reserved Reading location - IP/workstation name: [email or web address]
== END ==
LOC: WI 06:45
PROVIDERS: ATTEND Surgery
DX: R10.11 Right upper quadrant pain (principal); R11.0 Nausea; R14.0 Abdominal distension (gaseous)
CPT/HCPCS: 76705

== ENCOUNTER 2020-06-13 00:48 | Emergency (ER) | payer BC, OTHER ==
[2020-06-13 01:38] LABS: ABSOLUTE BASOPHILS # (AUTO) 0.1 10^3/uL (0.0-0.2); ABSOLUTE EOSINOPHILS # (AUTO) 0.1 10^3/uL (0.0-0.6); ABSOLUTE LYMPHOCYTES (AUTO) 2.9 10^3/uL (0.5-4.7); ABSOLUTE MONOCYTES (AUTO) 0.4 10^3/uL (0.1-1.4); ABSOLUTE NEUT (AUTO) 4.6 10^3/uL (1.7-8.2); BASOPHILS % (AUTO) 0.8 % (0-2); EOSINOPHILS % (AUTO) 0.9 % (0-6); HEMOGLOBIN 13.1 g/dL (12.0-15.5); LYMPHOCYTES % (AUTO) 35.7 % (13-45); MEAN CORPUSCULAR HEMOGLOBIN 28.1 pg (27.0-33.4); MEAN CORPUSCULAR HGB CONC 32.7 g/dL (32.0-36.0); MEAN CORPUSCULAR VOLUME 86 fl (80-97); MONOCYTES % (AUTO) 5.2 % (3-13); PLATELET COUNT 292 10^3/uL (150-450); RED BLOOD COUNT 4.65 10^6/uL (3.72-5.28); SEGMENTED NEUTROPHILS % (AUTO) 57.4 % (42-78); TOTAL CELLS COUNTED % (AUTO) 100 %; WHITE BLOOD COUNT 8.1 10^3/uL (4.0-10.5)
[2020-06-13 01:42] LABS: APPEARANCE,URINE CLEAR; BILIRUBIN,URINE NEGATIVE (NEGATIVE); COLOR,URINE YELLOW; GLUCOSE, URINE NEGATIVE (NEGATIVE); KETONES,URINE NEGATIVE (NEGATIVE); LEUKOCYTE ESTERASE,URINE NEGATIVE (NEGATIVE); NITRITE,URINE NEGATIVE (NEGATIVE); PROTEIN,URINE NEGATIVE (NEGATIVE); URINE SPECIFIC GRAVITY 1.015; UROBILINOGEN,URINE NEGATIVE mg/dL (<2.0)
[2020-06-13 01:53] LABS: ALBUMIN 3.7 g/dL (3.5-5.0); ALKALINE PHOSPHATASE 43 U/L (38-126); ANION GAP 9 (5-19); ASPARTATE AMINO TRANSFERASE 18 U/L (14-36); BILIRUBIN,DIRECT 0.2 mg/dL (0.0-0.4); BILIRUBIN,TOTAL 0.4 mg/dL (0.2-1.3); BLOOD UREA NITROGEN 16 mg/dL (7-20); CALCIUM 9.1 mg/dL (8.4-10.2); CARBON DIOXIDE 25 mmol/L (22-30); CHLORIDE 106 mmol/L (98-107); GLUCOSE 98 mg/dL (75-110); POTASSIUM 4.1 mmol/L (3.6-5.0); TOTAL PROTEIN 6.2 g/dL (6.3-8.2)
[2020-06-13] MEDS ORDERED: FAMOTIDINE 40 MG/5 ML SUSP 50 ML PO ONE (04:24)
[2020-06-13] MEDS ORDERED: MAG HYDROX/AL HYDROX/SIMETH SUSP 30 ML UDCUP PO ONE (04:24)
[2020-06-13] MEDS ORDERED: LIDOCAINE 2% VISCOUS SOLN 15 ML UDCUP PO ONE (04:24)
[2020-06-13] MEDS ORDERED: METOCLOPRAMIDE HCL ORAL SOLN 10 MG/10 ML UDCUP PO ONE (04:48)
[2020-06-13 05:06] VITALS: BP 125/66
--- NOTE | 2020-06-13 05:31 | ER Document Report ---
ED General - General Chief Complaint: Abdominal Pain Stated Complaint: ABDOMINAL PAIN/BACK PAIN Time Seen by Provider: 06/13/20 03:51 Primary Care Provider: KATEY KONG PA-C [Primary Care Provider] - Follow up as needed Information source: Patient Notes: Patient presents to the ER for evaluation of epigastric abdominal pain with nausea that began suddenly this afternoon. The patient states she has a history of gallbladder disease but has not had a cholecystectomy. She denies fever. She denies diarrhea. She denies cough or congestion. The patient states the pain was significantly worse several hours ago but has improved at this point. Nursing notes reviewed and past medical, social, and family histories reviewed and validated. TRAVEL OUTSIDE OF THE [place] IN LAST 30 DAYS: No - Related Data Allergies/Adverse Reactions: dexamethasone [From DexPak] Allergy (Unknown, Verified 06/13/20 01:09) facial numbness Home Medications: CONTROL Past Medical History - General Information source: Patient - Social History Smoking Status: Never Smoker Chew tobacco use (# tins/day): No Frequency of alcohol use: None Drug Abuse: None Lives with: Family Family History: Reviewed & Not Pertinent Patient has suicidal ideation: No Patient has homicidal ideation: No - Past Medical History Cardiac Medical History: Reports: None Pulmonary Medical History: Reports: None EENT Medical History: Reports: None Neurological Medical History: Reports: None Endocrine Medical History: Reports: None Renal/ Medical History: Reports: None Malignancy Medical History: Reports: None GI Medical History: Reports: None Musculoskeletal Medical History: Reports None Skin Medical History: Reports None Psychiatric Medical History: Reports: None Traumatic Medical History: Reports: None Infectious Medical History: Reports: None Past Surgical History: Reports: Hx Tonsillectomy - Immunizations Immunizations up to date: Yes Hx Diphtheria, Pertussis, Tetanus Vaccination: Yes Review of Systems - Review of Systems Notes: Constitutional: Negative for fever. HENT: Negative for sore throat. Eyes: Negative for visual changes. Cardiovascular: Negative for chest pain. Respiratory: Negative for shortness of breath. Gastrointestinal: Positive for abdominal pain. Positive for nausea. Genitourinary: Negative for dysuria. Musculoskeletal: Negative for back pain. Skin: Negative for rash. Neurological: Negative for headaches, weakness or numbness. 10 point ROS negative except as marked above and in HPI. Physical Exam - Vital signs Vitals: Temp Pulse Resp BP Pulse Ox 98.0 F 71 20 113/54 L 97 06/13/20 01:03 06/13/20 01:03 06/13/20 01:03 06/13/20 01:03 06/13/20 01:03 - Notes Notes: CONSTITUTIONAL: Well appearing. No acute distress. SKIN: Warm, dry, and intact without rash EYES: Extraocular movements are grossly intact, clear conjunctiva HENT: Normocephalic, atraumatic, moist mucus membranes NECK: No obvious swelling, normal range of motion PULMONARY: Normal chest rise and fall. Breath sounds clear and equal bilaterally. No respiratory distress or stridor CARDIOVASCULAR: Regular rate. No murmurs, rubs, gallops. Distal extremities are warm and well perfused. ABDOMINAL: The abdomen is soft. There is mild tenderness palpation in the epigastrium. NEUROLOGIC: Normal speech, moves all extremities. MUSCULOSKELETAL: No gross deformities, atraumatic PSYCHIATRIC: Normal mood and affect Course - Re-evaluation Re-evalutation: 06/13/20 05:38 Rechecked patient who has responded well to treatment in the ER. She received good pain relief with GI cocktail. Discussed with patient: results, diagnosis, treatment plan, and need for follow-up. Return to the emergency department warnings were given. All questions and concerns were addressed. The plan is agreed with and understood. Patient is stable and ready for discharge. - Vital Signs Vital signs: Temp Pulse Resp BP Pulse Ox 98.7 F 66 16 125/66 100 06/13/20 04:50 06/13/20 04:50 06/13/20 04:50 06/13/20 04:50 06/13/20 04:50 - Laboratory Result Diagrams: 06/13/20 01:25 06/13/20 01:25 Laboratory results interpreted by me: 06/13/20 06/13/20 01:25 01:25 Total Protein 6.2 L Urine Blood SMALL H Discharge - Discharge Clinical Impression: Upper abdominal pain, Nausea Condition: Stable Disposition: HOME, SELF-CARE Instructions: Abdominal Pain ([facility]) Prescriptions: Sucralfate [Carafate Susp 1 Gm/10 Ml Udcup] 1 gm PO ACHS 10 Days #1 udc Famotidine [Pepcid] 20 mg PO DAILY 20 Days tablet Referrals: KATEY KONG PA-C [Primary Care Provider] - Follow up as needed
== END 2020-06-13 05:40 | disposition home or self-care (01) ==
LOC: ER 00:48
DX: R10.13 Epigastric pain (principal); R10.816 Epigastric abdominal tenderness; R11.0 Nausea; Z79.3 Long term (current) use of hormonal contraceptives; Z87.19 Personal history of other diseases of the digestive system; Z88.8 Allergy status to other drugs, medicaments and biological substances
CPT/HCPCS: 99283; 36415; 84702; 83690; 85025; 80053; 81001; J3490